=== PATIENT | female | born 2005 | race Caucasian/White ===

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

== ENCOUNTER 2024-04-24 08:45 | Emergency (ER) | payer MEDICAID ==
[2024-04-24 09:14] LABS: HCG URINE TEST NEGATIVE (NEGATIVE)
[2024-04-24 09:15] VITALS: TEMP 98.3; O2SAT 99
[2024-04-24 09:19] LABS: Appearance Clear (Clear); Bacteria None Seen /HPF (None Seen); Bilirubin Negative (Negative); Blood Negative (Negative); Epithelial Cells Rare /HPF (None Seen); Glucose, Urine Negative (Negative); Hyaline Casts NONE SEEN /LPF (0-2); Ketones Negative (Negative); Leukocyte Esterase Negative (Negative); Nitrite Negative (Negative); Ph 5.5 (4.6-8.0); Protein,Urine Dip Negative (Negative); RBC 0-2 /HPF (0-5); Urobilinogen 0.2 mg/dL (0.2); WBC 0-2 /HPF (0-5)
[2024-04-24 09:54] LABS: Absolute Neutrophil Ct (ANC) 5.36 x10^3/uL (1.56-6.13); BASOPHIL % 0.4 % (0.1-1.2); Basophil (Absolute #) 0.04 x10^3/uL (0.01-0.08); Eosinophil % 3.9 % (0.7-5.8); Eosinophil (Absolute #) 0.36 x10^3/uL (0.04-0.36); Hemoglobin 13.3 g/dL (11.2-15.7); IMMATURE GRAN # 0.02 x10^3u/L (0.001-0.031); IMMATURE GRAN % 0.2 % (0.001-0.429); Lymphocyte (Absolute #) 2.66 x10^3/uL (1.18-3.74); Lymphocytes % 29.1 % (19.3-51.7); Mean Cell Volume 85.1 fL (79.4-94.8); Mean Corpuscular Hemoglobin 28.3 pg (25.6-32.2); Mean Corpuscular Hgb Concent. 33.3 g/dL (32.2-35.5); Mean Platelet Volume 10.1 fL (9.4-12.3); Monocytes % 7.7 % (4.7-12.5); Neutrophil % 58.7 % (34.0-71.1); Platelet Count 336 x10^3/uL (182-369); White Blood Count 9.1 x10^3/uL (3.98-10.04)
--- NOTE | 2024-04-24 09:54 | ERPHSYRPT ---
- History of Present Illness Time Seen by Provider: 04/24/24 09:48 Historian: patient, house officer Patient Subjective Stated Complaint: Pt. reports intermittent abdominal pain x 2 months, exacerbation of abd. pain onset last night around midnight, she states pain is in all 4 quadrants, it is 10/10, she reports n/v and states she has vomited 30 times since last, night. Triage Nursing Assessment: pt. ambulated to room independently, in NAD, skin p/w/d, resp even unlabored, voided without difficulty, reports abdominal pain and n/v with emesis x 30 since midnight, mucous membranes moist. Physician History: 18 years old female presented in the ER with off-and-on abdominal pain for couple months which got worse last night, all over, moderate to severe sharp shooting pain with no significant aggravating or relieving factors. Reports associated nausea vomiting and dry heaving. Denies any diarrhea or constipation. No known sick contact. No fever or chills reported. Allergies/Adverse Reactions: No Known Drug Allergies Allergy (Verified 04/24/24 09:15) Hx Tetanus, Diphtheria Vaccination/Date Given: No Hx Influenza Vaccination/Date Given: No Hx Pneumococcal Vaccination/Date Given: No Immunizations Up to Date: Yes Travel Risk - International Travel Have you traveled outside of the country in past 3 weeks: No - Emerging Infectious Disease Are you exhibiting symptoms associated with any current EIDs: Yes Symptoms: Abdominal Pain - Review of Systems Constitutional: No Symptoms Eyes: No Symptoms Ears, Nose, & Throat: No Symptoms Respiratory: No Symptoms Cardiac: No Symptoms Abdominal/Gastrointestinal: Abdominal Pain, Nausea, Vomiting Genitourinary Symptoms: No Symptoms Musculoskeletal: No Symptoms Skin: No Symptoms Neurological: No Symptoms Endocrine: No Symptoms Hematologic/Lymphatic: No Symptoms - Past Medical History Pertinent Past Medical History: Yes Neurological History: No Pertinent History ENT History: No Pertinent History Cardiac History: No Pertinent History Respiratory History: No Pertinent History Endocrine Medical History: No Pertinent History Musculoskeletal History: No Pertinent History GI Medical History: No Pertinent History History: No Pertinent History Psycho-Social History: Anxiety Female Reproductive Disorders: No Pertinent History - Past Surgical History Past Surgical History: No Neuro Surgical History: No Pertinent History Cardiac: No Pertinent History Respiratory: No Pertinent History Gastrointestinal: No Pertinent History Genitourinary: No Pertinent History Musculoskeletal: No Pertinent History Female Surgical History: No Pertinent History Significant Family History: no pertinent family hx - Female History Hx Last Menstrual Period: 04/11/24 Hx Now: No - Social History Smoking Status: Never smoker Exposure to second hand smoke: No Drug Use: none Patient Lives Alone: No - Social Determinants of Health Will the patient participate in the screening: Yes Do you worry about a steady place to live?: No Do you have any problems with any of the following?: No known problems In the past 12 months,have you had to go without utilities?: No Transportation Issues: No Has anyone in your support network made you feel unsafe?: No Have you or anyone in your house had to go without enough: No - Nursing Vital Signs Nursing Vital Signs: Initial Vital Signs Temperature 98.3 F 04/24/24 08:50 Pulse Rate 64 04/24/24 08:50 Respiratory Rate 18 04/24/24 08:50 Blood Pressure 131/81 04/24/24 08:50 O2 Sat by Pulse Oximetry 99 04/24/24 08:50 Pain Scale Pain Intensity 10 - Physical Exam General Appearance: no apparent distress Eye Exam: PERRL/EOMI Ears, Nose, Throat Exam: normal ENT inspection Neck Exam: normal inspection, full range of motion Respiratory Exam: normal breath sounds, lungs clear Cardiovascular Exam: regular rate/rhythm, normal heart sounds Gastrointestinal/Abdomen Exam: soft, normal bowel sounds, tenderness (Mild generalized tenderness with no guarding or rebound) Extremity Exam: normal inspection, normal range of motion Neurologic Exam: alert, oriented x 3, cooperative Skin Exam: normal color SpO2 Interpretation: normal SpO2: 99 O2 Delivery: Room Air Ordered Tests: Active Orders 24 hr Category Date Time Status NPO (ED) STAT Care 04/24/24 09:10 Active ABDOMEN AND PELVIS W/0 CONTRAS [CT] Stat Exams 04/24/24 09:10 Completed AMYLASE Stat Lab 04/24/24 09:52 Completed CBC W DIFF Stat Lab 04/24/24 09:52 Completed CMP Stat Lab 04/24/24 09:52 Completed HCG QUALITATIVE, URINE Stat Lab 04/24/24 08:57 Completed LIPASE Stat Lab 04/24/24 09:52 Completed UA W/RFX UR CULTURE Stat Lab 04/24/24 08:57 Completed Medication Summary Discontinued Medications Generic Name Dose Route Start Last Admin Trade Name Freq PRN Reason Stop Dose Admin Acetaminophen 975 mg 04/24/24 09:51 04/24/24 10:11 Acetaminophen 325 Mg Tablet PO 04/24/24 09:52 975 mg STAT ONE Administration Acetaminophen Confirm 04/24/24 10:08 Acetaminophen 325 Mg Tablet Administered 04/24/24 10:09 Dose 975 mg .ROUTE .STK-MED ONE Ketorolac Tromethamine 30 mg 04/24/24 09:51 04/24/24 10:12 Ketorolac Tromethamine 30 Mg/Ml Inj IM 04/24/24 09:52 30 mg STAT ONE Administration Ketorolac Tromethamine Confirm 04/24/24 10:07 Ketorolac Tromethamine 30 Mg/Ml Inj Administered 04/24/24 10:08 Dose 30 mg .ROUTE .STK-MED ONE Ondansetron HCl 4 mg 04/24/24 09:51 04/24/24 10:13 Zofran 4 Mg/Udtablet Orally Disintegrating PO 04/24/24 09:52 4 mg STAT ONE Administration Ondansetron HCl Confirm 04/24/24 10:07 Ondansetron Hcl 4 Mg/2 Ml Vial Administered 04/24/24 10:08 Dose 4 mg .ROUTE .STK-MED ONE Ondansetron HCl Confirm 04/24/24 10:13 Zofran 4 Mg/Udtablet Orally Disintegrating Administered 04/24/24 10:14 Dose 4 mg .ROUTE .STK-MED ONE Lab/Rad Data: Laboratory Result Diagrams 04/24/24 09:52 04/24/24 09:52 Laboratory Results 04/24/24 04/24/24 04/24/24 Range/Units 09:52 09:52 08:57 WBC 9.1 (3.98-10.04) x10^3/uL RBC 4.70 (3.93-5.22) x10^6/uL Hgb 13.3 (11.2-15.7) g/dL Hct 40.0 (34.1-44.9) % MCV 85.1 (79.4-94.8) fL MCH 28.3 (25.6-32.2) pg MCHC 33.3 (32.2-35.5) g/dL RDW 13.0 (11.7-14.4) % Plt Count 336 (182-369) x10^3/uL MPV 10.1 (9.4-12.3) fL Gran % 58.7 (34.0-71.1) % Immature Gran % (Auto) 0.2 (0.001-0.429) % Nucleat RBC Rel Count 0.0 (0.00-0.2) % Eos # (Auto) 0.36 (0.04-0.36) x10^3/uL Immature Gran # (Auto) 0.02 (0.001-0.031) x10^3u/L Absolute Lymphs (auto) 2.66 (1.18-3.74) x10^3/uL Absolute Monos (auto) 0.70 (0.24-0.86) x10^3/uL Absolute Nucleated RBC 0.00 (0.00-0.012) x10^3u/L Lymphocytes % 29.1 (19.3-51.7) % Monocytes % 7.7 (4.7-12.5) % Eosinophils % 3.9 (0.7-5.8) % Basophils % 0.4 (0.1-1.2) % Absolute Granulocytes 5.36 (1.56-6.13) x10^3/uL Basophils # 0.04 (0.01-0.08) x10^3/uL Sodium 140 (135-145) mmol/L Potassium 4.0 (3.5-5.1) mmol/L Chloride 107 (98-107) mmol/L Carbon Dioxide 23 (22-30) mmol/L Anion Gap 14.5 (5-15) MEQ/L BUN 12 (7-17) mg/dL Creatinine 0.72 (0.52-1.04) mg/dL Estimated GFR 123.4 ML/MIN Glucose 84 (74-106) mg/dL Calcium 9.6 (8.4-10.2) mg/dL Total Bilirubin 0.40 (0.2-1.3) mg/dL AST 26 (14-36) U/L ALT 22 (0-35) U/L Alkaline Phosphatase 74 (38-126) U/L Serum Total Protein 7.6 (6.3-8.2) g/dL Albumin 4.4 (3.5-5.0) g/dL Amylase 110 (30-110) U/L Lipase 87 (23-300) U/L Urine Color (Yellow) Urine Appearance (Clear) Urine pH (4.6-8.0) Ur Specific [place] (1.005-1.030) Urine Protein (Negative) Urine Glucose (UA) (Negative) mg/dL Urine Ketones (Negative) Urine Blood (Negative) Urine Nitrite (Negative) Urine Bilirubin (Negative) Urine Urobilinogen (0.2) mg/dL Ur Leukocyte Esterase (Negative) U Hyaline Cast (Auto) (0-2) /LPF Urine Microscopic RBC (0-5) /HPF Urine Microscopic WBC (0-5) /HPF Ur Epithelial Cells (None Seen) /HPF Urine Bacteria (None Seen) /HPF Urine Culture Reflexed (NO) Urine HCG, Qual NEGATIVE (NEGATIVE) 04/24/24 Range/Units 08:57 WBC (3.98-10.04) x10^3/uL RBC (3.93-5.22) x10^6/uL Hgb (11.2-15.7) g/dL Hct (34.1-44.9) % MCV (79.4-94.8) fL MCH (25.6-32.2) pg MCHC (32.2-35.5) g/dL RDW (11.7-14.4) % Plt Count (182-369) x10^3/uL MPV (9.4-12.3) fL Gran % (34.0-71.1) % Immature Gran % (Auto) (0.001-0.429) % Nucleat RBC Rel Count (0.00-0.2) % Eos # (Auto) (0.04-0.36) x10^3/uL Immature Gran # (Auto) (0.001-0.031) x10^3u/L Absolute Lymphs (auto) (1.18-3.74) x10^3/uL Absolute Monos (auto) (0.24-0.86) x10^3/uL Absolute Nucleated RBC (0.00-0.012) x10^3u/L Lymphocytes % (19.3-51.7) % Monocytes % (4.7-12.5) % Eosinophils % (0.7-5.8) % Basophils % (0.1-1.2) % Absolute Granulocytes (1.56-6.13) x10^3/uL Basophils # (0.01-0.08) x10^3/uL Sodium (135-145) mmol/L Potassium (3.5-5.1) mmol/L Chloride (98-107) mmol/L Carbon Dioxide (22-30) mmol/L Anion Gap (5-15) MEQ/L BUN (7-17) mg/dL Creatinine (0.52-1.04) mg/dL Estimated GFR ML/MIN Glucose (74-106) mg/dL Calcium (8.4-10.2) mg/dL Total Bilirubin (0.2-1.3) mg/dL AST (14-36) U/L ALT (0-35) U/L Alkaline Phosphatase (38-126) U/L Serum Total Protein (6.3-8.2) g/dL Albumin (3.5-5.0) g/dL Amylase (30-110) U/L Lipase (23-300) U/L Urine Color Yellow (Yellow) Urine Appearance Clear (Clear) Urine pH 5.5 (4.6-8.0) Ur Specific [place] 1.020 (1.005-1.030) Urine Protein Negative (Negative) Urine Glucose (UA) Negative (Negative) mg/dL Urine Ketones Negative (Negative) Urine Blood Negative (Negative) Urine Nitrite Negative (Negative) Urine Bilirubin Negative (Negative) Urine Urobilinogen 0.2 (0.2) mg/dL Ur Leukocyte Esterase Negative (Negative) U Hyaline Cast (Auto) NONE SEEN (0-2) /LPF Urine Microscopic RBC 0-2 (0-5) /HPF Urine Microscopic WBC 0-2 (0-5) /HPF Ur Epithelial Cells Rare (None Seen) /HPF Urine Bacteria None Seen (None Seen) /HPF Urine Culture Reflexed NO (NO) Urine HCG, Qual (NEGATIVE) - Progress Progress: improved Progress Note: 04/24/24 10:38 18 years old is evaluated in the ER for generalized abdominal pain with nausea vomiting and dry heaving. Patient has mild diffuse tenderness with no guarding or rebound. She is given symptomatic treatment, on reevaluation feeling much improved. No peritoneal signs on repeated eval. Workup showed normal white count, unremarkable chemistries and no UTI. CT abdomen pelvis without contrast is negative for any acute intra-abdominal pelvic findings. I believe patient's symptoms are viral etiology could be have some element of gastritis, I would give a prescription of Protonix and Zofran to go home and outpatient follow-up recommended. Discussed signs symptoms of worsening needing return to ER which s he seems understanding. Stable for discharge. Counseled pt/family regarding: lab results, diagnosis, need for follow-up, rad results Medical Desision Making - Independent Historian Additional History obtained from: Spouse - Diagnostic Testing Diagnostic test were ordered, analyzed, and reviewed by me: Yes Radiological Interpretation: Reviewed by me, Teleradiologist Report - Risk of complications The pt has a mod risk of morbidity or mortality based on: Need for prescription drug management - Departure Departure Disposition: Home Clinical Impression: Nausea & vomiting, Viral gastroenteritis Condition: Stable Critical Care Time: No Referrals: STEPHEN BAILEY NP [Primary Care Provider] - Follow up with PCP 1 day Instructions: Severe Abdominal Pain, Adult (DC) Additional Instructions: Drink plenty of fluids. Take Tylenol/Zofran as needed. Follow-up with primary care for reevaluation. Return to ER for intractable abdominal pain nausea vomiting or if develop fever chills etc. Prescriptions: PANTOPRAZOLE 40 mg Tablet [Protonix 40MG Tablet] 40 mg PO QAM #30 tab Ondansetron ODT 4 MG [Zofran Odt 4 mg] 1 ea PO QIDPRN PRN #7 tablet PRN Reason: n/v
[2024-04-24] MEDS ORDERED: TORAdol 30 mg Injection ONE (10:07)
[2024-04-24] MEDS ORDERED: Zofran 4 MG/2 ML VIAL ONE (10:07)
[2024-04-24] MEDS ORDERED: TYLENOL 325 MG ONE (10:08)
[2024-04-24] MEDS: TYLENOL 325 MG PO ONE (10:11)
[2024-04-24] MEDS: TORAdol 30 mg Injection IM ONE (10:12)
[2024-04-24] MEDS: ZOFRAN ODT 4 MG PO ONE (10:13)
[2024-04-24] MEDS ORDERED: ZOFRAN ODT 4 MG ONE (10:13)
[2024-04-24 10:16] LABS: ALBUMIN 4.4 g/dL (3.5-5.0); ANION GAP 14.5 MEQ/L (5-15); BILIRUBIN,TOTAL 0.4 mg/dL (0.2-1.3); Calcium 9.6 mg/dL (8.4-10.2); Creatinine 1 0.72 mg/dL (0.52-1.04); EST GLOMERULAR FILTRATION RATE 123.4 ML/MIN; Total Protein 7.6 g/dL (6.3-8.2)
--- NOTE | 2024-04-24 10:34 | XRAY ---
CLINICAL HISTORY: abdominal pain COMPARISON: None. TECHNIQUE: Non-contrast CT of the abdomen and pelvis was performed, with the following protocol: axial images, and reconstructed coronal and sagittal images. No intravenous contrast was administered. One of the following dose reduction techniques was utilized for this exam: Automated exposure control, adjustment of the mA and/or kV according to patient size, and use of iterative reconstruction. FINDINGS: Abdomen: Liver: Normal in size, shape, and density. No focal lesions, cysts, or masses were identified. Gallbladder and Biliary System: The gallbladder is normal in size and shape. No wall thickening, pericholecystic fluid, or gallstones were identified. Pancreas: Pancreatic head, body, and tail are visualized and appear normal in size and density. No pancreatic masses or calcifications were noted. Spleen: Normal in size, shape, and density. No splenic lesions or masses were identified. Kidneys and Adrenal Glands: Both kidneys are normal in size, shape, and position. Cortical thickness is within normal limits. No renal calculi or hydronephrosis. Tiny subcentimeter cyst seen in the right kidney. Adrenal glands are unremarkable. Appendix: The appendix is normal in size without edmund appendiceal fat stranding, and without an appendicolith. No evidence of appendiceal abscess or perforation. Pelvis: Urinary Bladder: Normal in contour and wall thickness. No intraluminal lesions. Uterus: Normal in size and contour. No masses or abnormal thickening. Ovaries: Not well visualized but no gross abnormalities noted. Vagina: Normal in contour and wall thickness. Cervix: No evidence of mass or abnormal thickening. Peritoneal and Retroperitoneal Structures: No free fluid or abnormal fluid collections were identified within the abdomen or pelvis. No lymphadenopathy was noted. Bowel: The visualized bowel loops are normal in caliber and appearance. No evidence of bowel obstruction or wall thickening. Few tiny subcentimeter lymph nodes seen in the right iliac fossa. Bones and Soft Tissues: Pelvic bones and soft tissues are unremarkable. No fractures or abnormal masses were identified. IMPRESSION: 1. Non-contrast CT abdomen and pelvis demonstrate normal findings without evidence of acute intra-abdominal pathology. 2. Clinical correlation is recommended. Electronically Signed by: Tori Peters MD. (04/24/2024 10:29:33 EST)
[2024-04-24 10:44] VITALS: BP 110/76; PULSE 66; RESP 11
== END 2024-04-24 11:00 | disposition home or self-care (01) ==
LOC: ED 08:45
DX: A08.4 Viral intestinal infection, unspecified (principal); R10.9 Unspecified abdominal pain; R11.2 Nausea with vomiting, unspecified
CPT/HCPCS: 36415; 74176; 80053; 81001; 81025; 82150; 83690; 85025; 96372; 99283; 99284; J1885; J2405; Q0162; A9270-GY